=== PATIENT | female | born 1985 | race African-American/Black ===

== ENCOUNTER 2018-05-01 12:10 | Emergency (ER) | payer OTHER ==
[2018-05-01 12:20] VITALS: BP 90/61; PULSE 71; BMI 18.8
[2018-05-01] MEDS ORDERED: ACETAMINOPHEN 500 MG TABLET (FP) PO ONE (12:38)
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
[2018-05-01] MEDS ORDERED: LIDOCAINE 5% TOPICAL PATCH TP ONE (12:45)
[2018-05-01] MEDS ORDERED: CYCLOBENZAPRINE HCL 10 MG TABLET (FP) PO ONE (12:45)
[2018-05-01] MEDS ORDERED: ACETAMINOPHEN 325 MG TABLET (FP) ONE (12:47)
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
[2018-05-01] MEDS ORDERED: CYCLOBENZAPRINE HCL 10 MG TABLET (FP) ONE (12:56)
[2018-05-01] MEDS ORDERED: LIDOCAINE 5% TOPICAL PATCH ONE (12:56)
[2018-05-01] MEDS ORDERED: IBUPROFEN 600 MG TABLET (FP) PO ONE ×2 (13:50→14:01)
[2018-05-01] MEDS ORDERED: LIDOCAINE PATCH REMOVAL MC SCH (22:00)
== END 2018-05-01 14:08 | disposition home or self-care (01) ==
LOC: JER 12:10
DX: G44.309 Post-traumatic headache, unspecified, not intractable (principal); V43.52XA Car driver injured in collision with other type car in traffic accident, initial encounter; Y92.488 Other paved roadways as the place of occurrence of the external cause; Y93.89 Activity, other specified; Y99.8 Other external cause status
CPT/HCPCS: 84703; 99282-25